=== PATIENT | female | born 1970 | race Caucasian/White ===

== ENCOUNTER → 2017-07-02 | Day surgery (SDC) | payer OTHER ==
[~2017-07-02] MED LIST: ACETAMINOPHEN 1000 MG/100 ML 100 ML IV ONE; KETOROLAC TROMETHAMINE 30 MG/ML (IVP) VIAL IV PUSH ONE; LACTATED RINGER'S 1000 ML INJ 1,000 ML ONE; LIDOCAINE HCL 1% PF 30 ML VIAL ONE; MIDAZOLAM HCL 2 MG/2 ML VIAL ONE; ONDANSETRON HCL 4 MG/2 ML VIAL IV PUSH ONE; PROPOFOL 200 MG/20 ML AMP IV ONE; ceFAZolin INJ 1,000 MG VIAL ONE
--- NOTE | 2017-07-02 08:33 | TN ---
cc: CEASAR VILLAGRAN M.D. DATE OF SURGERY 07/02/2017 PREOPERATIVE DIAGNOSIS Lipodystrophy of the torso. POSTOPERATIVE DIAGNOSIS Lipodystrophy of the torso. PROCEDURE Slim lipo SURGEON Ceasar Villagran MD ANESTHESIA LMA. TOTAL I&O 1000 in, 675 out TOTAL ENERGY UTILIZED 35,000 joules PROCEDURE She was properly consented, marked and anesthetized. The skin was sterilized with Betadine solution. Utilizing the tulip draping system, tumescent fluid was done after approaching the specific areas and puncture wounds done utilizing an 11-blade. After this, it was allowed 10 minutes of vasoconstriction, the energy was delivered by putting 10,000 on the anterior upper and lower abdomen and 7000 on each flank and lower back. Tumescent evacuation was carried out utilizing 2.5 Vibratory cannula. The puncture wounds were closed utilizing 5-0 chromic suture and Steri-Strips applied and abdominal binder after that. She was awakened and extubated in the operating room, transferred back to the postanesthesia care unit in stable condition. No complications appreciated. The patient tolerated the procedure fairly well. MD VICTOR MANUEL Toussaint/LAUREANO /8:22 AM /8:25 AM
== END | disposition home or self-care (01) ==
LOC: ESDC 06:21
PROVIDERS: ATTEND Plastic Surgery
DX: Z41.1 Encounter for cosmetic surgery (principal)
CPT/HCPCS: 00300; 00400; 15877; J0131; J0690; J1885; J2250; J2405; J3010; J7120